=== PATIENT | male | born 1950 | race Caucasian/White ===

== ENCOUNTER → 2020-06-07 15:44 | Outpatient (CLI) | payer MEDICARE, OTHER, SELFPAY ==
--- NOTE | 2020-06-07 16:15 | RAD_ITS ---
STUDY: X-RAY - RIGHT WRIST REASON FOR EXAM: Male, 69 years old. right wrist pain after fall, pain in scaphoid region TECHNIQUE: 4 view(s) of the wrist were obtained. COMPARISON: None. FINDINGS: Normal visualized distal radius and ulna. Normal radiocarpal articulation. Normal distal radioulnar articulation. Normal carpal bones. Normal carpal articulations. Normal carpometacarpal articulation of the thumb. Normal second through fifth carpometacarpal articulations. Normal visualized metacarpal bones. The soft tissue structures are unremarkable. There is no demonstrated acute fracture. RAD/Wrist min 3 Views IMPRESSION: Normal x-ray examination of the wrist. Electronically Signed: Felix Arias MD at 17:19 EST , Service support ,
== END ==
PROVIDERS: PCP Family Medicine; Referring Provider Family Medicine; Visit Provider Family Medicine
DX: M25.531 Pain in right wrist (principal)
CPT/HCPCS: 73110

== ENCOUNTER → 2022-08-22 | Outpatient (CLI) | payer MEDICARE, OTHER, SELFPAY ==
[2022-08-22 10:23] LABS: Absolute Lymphocyte Count 2.06 X10^3/uL (0.83-4.51); Absolute Neutrophil Count 4.6 X10^3/uL (2.0-7.7); Basophil# 0.06 X10^3/uL; Basophil% 0.8 % (0-1); Eosinophil# 0.28 X10^3/uL; Eosinophils% 3.5 % (0-5); Hematocrit 44.6 % (40-54); Hemoglobin 15.1 g/dL (13.0-16.5); Lymphocyte # 2.06 X10^3/ul (0.83-4.51); Lymphocyte % 26.1 % (19-41); Mean Corp Hgb Conc 33.9 g/dL (32-36); Mean Corpuscular Hgb 30.9 pg (27.0-32.0); Mean Corpuscular Volume 91.2 fL (80-94); Mean Platelet Vol. 11.3 fl (6.2-12.0); Monocyte# 0.86 X10^3/uL; Monocyte% 10.9 % (0-10); NRBC Flagged by Analyzer 0 % (0-5); Neutrophil # 4.62 X10^3/uL (2.7-7.7); Neutrophil % 58.4 % (47-70); Platelet Count 198 K/mm3 (150-450); Red Blood Count 4.89 M/mm3 (4.6-6.2); White Blood Count 7.9 K/mm3 (4.4-11.0)
[2022-08-22 10:37] LABS: Hemoglobin A1c 5.5 % (3.8-5.6)
[2022-08-22 10:57] LABS: ALB/GLOB Ratio 1.1 RATIO (0.9-2.4); AST(SGOT) 45 U/L (15-37); Alanine Aminotransfer ALT/SGPT 55 U/L (16-61); Albumin, Serum 3.7 g/dL (3.2-5.0); Alkaline Phosphatase 72 U/L (45-117); Anion Gap 6 (5-15); BUN 12 mg/dL (7-18); BUN/Creat Ratio 12.7 RATIO (10-20); Calcium,Total 8.7 mg/dL (8.5-10.1); Chloride 106 mmol/L (98-107); Cholesterol 124 mg/dL (200); Creatinine, Serum 0.94 mg/dL (0.70-1.30); EST Glomerular Filtration Rate 84 mL/min (>60); Est Glom Filt Rate - Afr Amer 101 mL/min (>60); Globulin 3.4 g/dL (2.2-4.2); Glucose 101 mg/dL (74-106); High Density Lipoprotein 39 mg/dL; PSA,Total- Diagnostic < 0.01 ng/mL (0.0-4.0); Potassium 3.6 mmol/L (3.5-5.1); Protein, Total 7.1 g/dL (6.4-8.2); Sodium Level 137 mmol/L (136-145); Thyroid Stim Hormone (TSH) 3.22 uIU/mL (0.358-3.74); Triglycerides 126 mg/dL; Very Low Density Lipoprotein 25 mg/dL (5-40)
== END | disposition home or self-care (01) ==
PROVIDERS: PCP Family Medicine; Referring Provider Family Medicine; Visit Provider Family Medicine
DX: C61 Malignant neoplasm of prostate (principal); I77.89 Other specified disorders of arteries and arterioles; E78.5 Hyperlipidemia, unspecified; R73.9 Hyperglycemia, unspecified
CPT/HCPCS: 36415; 80053; 80061; 83036; 84153; 84443; 85025

== ENCOUNTER → 2023-02-13 | Outpatient (CLI) | payer MEDICARE, OTHER, SELFPAY ==
--- NOTE | 2023-02-13 19:00 | CT_ITS ---
INDICATION: LT GROIN PAIN EXAMINATION: CT PELVIS BONE - CT Pelvis W/O Contrast Injection TECHNIQUE: Routine noncontrast bone CT protocol was performed of the pelvis. 2-D reformats were performed by the technologist. A radiation dose optimization technique was used for this scan. IV Contrast dosage and agent: None. RADIATION DOSAGE (If Supplied By Facility): CTDIvol = ( 28.21 ) mGy, DLP = ( 1053.30 ) mGycm COMPARISON: No relevant prior comparison study available FINDINGS: SOFT TISSUES: No soft tissue swelling or gas. No unexpected radiopaque foreign body. There is a penile pump with tubing extending through the left inguinal region. [place] is in the left anterior pelvis. No inflammation surrounding the tubing. Nonobstructive bowel gas pattern. Normal appendix. No acute bladder abnormality. No lymphadenopathy. BONES/JOINTS: No acute fracture or subluxation. Normal alignment. Mild degenerative change of both hips. No sclerotic or destructive changes. CT/Pelvis without IV Contrast IMPRESSION: No acute abnormality. Tubing from penile pump in the left groin region. No inflammation. No abdominal wall hernia. Electronically Signed: Montez Lux MD at 23:30 EDT ,
== END | disposition home or self-care (01) ==
LOC: CT 19:02
PROVIDERS: PCP Family Medicine; Visit Provider Physician Assistant
DX: R10.2 Pelvic and perineal pain (principal)
CPT/HCPCS: 72192

== ENCOUNTER 2023-08-30 06:43 | Day surgery (SDC) | payer MEDICARE, OTHER, SELFPAY ==
[2023-08-30 07:01] VITALS: BP 118/95; PULSE 58; RESP 18; TEMP 36.3; O2SAT 97; BMI 29.0
[2023-08-30] MEDS: Lactated Ringers 1,000 ML 15 ML IV (07:15)
--- NOTE | 2023-08-30 07:52 | PCM.HP.STD ---
[facility] - General General Date of Admission: 01/19/20 Date of Service: 08/30/23 Chief Complaint: Screening for intestinal cancer [facility] Narrative OWEN HOOK, is a 73 M who presents for screening colonoscopy. Previous colonoscopy December 2013. He suggest that the provider at that time suggested that he had some 10-year polyps. I am suspecting that meant hyperplastic. He has had no symptoms. No bright red blood per rectum or melena. No abdominal pain. He does present via open access today. [facility] Medical History Alcohol use Bladder disease Cancer Cardiology follow-up encounter High cholesterol History of echocardiogram History of stress test HTN (hypertension) Hx of colonic polyp Injury of head and neck Non-smoker Prostate cancer Wears glasses Home Medications atorvastatin 40 mg tablet 40 mg PO DAILY 02/07/23 [History Last Taken Unknown] chlorthalidone 25 mg tablet 12.5 mg PO DAILY 02/07/23 [History Last Taken Unknown] ascorbic acid (vitamin C) 1,000 mg tablet 1 g PO DAILY 06/19/23 [History Last Taken Unknown] calcium carbonate 500 mg PO DAILY 06/19/23 [History Last Taken Unknown] cholecalciferol (vitamin D3) 50 mcg (2,000 unit) capsule 50 mcg PO DAILY 06/19/23 [History Last Taken Unknown] multivitamin 1 tab PO DAILY 06/19/23 [History Last Taken Unknown] Allergy/AdvReac Type Severity Reaction Status Date / Time ciprofloxacin [From Cipro] Allergy Retinal Verified 08/30/23 06:59 Focal Separation Family History (Updated 06/19/23 @ 09:43 by Amena Elam) Mother Hypertension CVA (cerebral vascular accident) Father Pancreatic cancer Surgical History History of bladder surgery Hx of inguinal hernia surgery S/P prostatectomy S/P tonsillectomy Social History (Updated 06/19/23 @ 09:43 by Amena Elam) household members: spouse current occupational status: retired current occupation: Physician Smoking Status: Never smoker alcohol intake: current substance use type: does not use ROS Constitutional Constitutional: Reports systems reviewed and no addt'l complaints, except as documented Cardiovascular Cardiovascular: Denies chest pain Respiratory/Chest Respiratory/Chest: Denies shortness of breath at rest Gastrointestinal Gastrointestinal: Denies abdominal pain, change in bowel habits, hematochezia or melena Vital Signs Vital Signs Vital Signs: 08/30/23 07:01 08/30/23 07:01 Temperature 97.3 F L Temperature Source Temporal Pulse Rate 58 L Respiratory Rate 18 Respiratory Pattern Normal Blood Pressure 118/95 H Blood Pressure Mean 102 Blood Pressure Source Monitor Blood Pressure Position Semi-Fowlers Blood Pressure Location Left Arm Pulse Ox 97 Oxygen Delivery Method Room Air Weight Weight: 214 lb 4.629 oz Body Mass Index (BMI) 29.0 Physical Exam Const alert, oriented x3 and no apparent distress General Appearance: cooperative and comfortable Eyes General Eye: normal appearance of both eyes Neck General: normal visual inspection Chest inspection of chest normal Resp Effort and Inspection: able to speak in complete sentences and symmetric chest movement Auscultation: clear to auscultation bilaterally Cardio regular rate and regular rhythm GI soft to palpation, non-tender and non-distended Extremity no calf tenderness Neuro oriented x3 Psych thought process normal Assessment & Plan Assessment/Plan (1) Encounter for screening for malignant neoplasm of colon: PLAN: The patient presents today for screening colonoscopy with possible biopsy or polypectomy as indicated. He is aware of the technique, benefit, risk, alternatives. He has had an opportunity to ask and have questions answered. We will proceed as noted. As noted he presents via open access Abel Doshi M.D., F.A.C.S.
--- NOTE | 2023-08-30 08:00 | COLBX_PTH ---
PATIENT: OWEN HOOK LOC: EN U#:[id number] AGE/SX: 73/M ROOM: RE08/30/[address]: Dr. Abel Doshi MD : 1950 BED: DIS: 08/30/2023 SPEC #: [id number] RECD: 08/30/23 11:10 STATUS: CALDERON LAKISHA #: [id number] KARY: 08/30/23 08:[address]: Abel Doshi DEPT: SURGICAL PATHOLOGY RECD BY: Rajwinder Diego ENTERED: 08/30/23 12:00 SP TYPE: COLON BX OTHR DR: Dr. Chano Colón MD Tissues: A - COLON BIOPSY B - Rectum, NOS C - Rectum, NOS D - Rectum, NOS Procedures: Surgery Specimen Level IV HEADER OPERATION: Colonoscopy with biopsy PRE-OP DIAGNOSIS: Encounter for screening for malignant neoplasm of colon TISSUE SUBMITTED: A- Hepatic flexure biopsy, B- Rectal sigmoid biopsy x3, C- Proximal rectum biopsy, D- Mid rectum biopsy x3 MICROSCOPIC DIAGNOSIS A. Colon at hepatic flexure, biopsy: No pathologic change. B. Rectal sigmoid colon, biopsy: Fragments of hyperplastic polyp. C. Proximal rectum, biopsy: No pathologic change. D. Mid rectum, biopsy: Fragments of hyperplastic polyp. MERY/ 09/03/2023 MICROSCOPIC DESCRIPTION Slides are reviewed. GROSS DESCRIPTION A. Received in fixative is one container labeled with the patient's name and designated Hepatic flexure biopsy. The specimen consists of multiple irregular fragments of light [place] soft tissue that in aggregate measure 0.8 x 0.8 x 0.1 cm. The specimen is totally submitted in one cassette. B. Received in fixative is one container labeled with the patient's name and designated Rectal sigmoid biopsy x3. The specimen consists of multiple irregular fragments of light [place] soft tissue that in aggregate measure 1.0 x 0.8 x 0.1 cm. The specimen is totally submitted in one cassette. C. Received in fixative is one container labeled with the patient's name and designated Proximal rectum biopsy. The specimen consists of one irregular fragment of light [place] soft tissue that measures 0.5 x 0.3 x 0.1 cm. The specimen is totally submitted in one cassette. D. Received in fixative is one container labeled with the patient's name and designated Mid rectum biopsy x3. The specimen consists of multiple irregular fragments of light [place] soft tissue that in aggregate measure 2.0 x 0.5 x 0.1 cm. The specimen is totally submitted in one cassette. MARY/ 08/30/2023 TC:5 CPT:74209p8
[2023-08-30 09:06] VITALS: BP 104/84; BP 118/95; PULSE 56; RESP 16; TEMP 36.2; O2SAT 100
[2023-08-30 09:10] VITALS: BP 104/81; BP 118/95; PULSE 61; RESP 18; O2SAT 100
--- NOTE | 2023-08-30 09:12 | OP.COLON_ITS ---
Patient Name: Danilo Bond Procedure Date: 08/30/2023 8:26 AM Date of : 1950 Age: 73 Procedure: Colonoscopy Indications: Screening for colorectal malignant neoplasm Providers: Abel Doshi MD Medicines: See the Anesthesia note for documentation of the administered medications Patient Profile: Last Colonoscopy: 2013. Complications: No immediate complications. Procedure: Pre-Anesthesia Assessment: - Prior to the procedure, a History and Physical was performed, and patient medications and allergies were reviewed. The patient's tolerance of previous anesthesia was also reviewed. The risks and benefits of the procedure and the sedation options and risks were discussed with the patient. All questions were answered, and informed consent was obtained. Prior Anticoagulants: The patient has taken no anticoagulant or antiplatelet agents. ASA Grade Assessment: II - A patient with mild systemic disease. After reviewing the risks and benefits, the patient was deemed in satisfactory condition to undergo the procedure. After I obtained informed consent, the scope was passed under direct vision. Throughout the procedure, the patient's blood pressure, pulse, and oxygen saturations were monitored continuously. The adult colonoscope was introduced through the anus and advanced to the cecum, identified by appendiceal orifice and ileocecal valve. The colonoscopy was performed without difficulty. The patient tolerated the procedure well. The quality of the bowel preparation was good. The ileocecal valve and the appendiceal orifice were photographed. Scope In: 8:35:37 AM Scope Withdrawal Time 0 hours 19 minutes 37 seconds Scope Out: 9:01:46 AM Total Procedure Duration Time 0 hours 26 minutes 9 seconds Findings: Hemorrhoids were found on perianal exam. A 3 mm polyp was found in the hepatic flexure. The polyp was sessile. The polyp was removed with a cold biopsy forceps. Resection and retrieval were complete. Three sessile polyps were found in the recto-sigmoid colon. The polyps were 3 to 4 mm in size. These polyps were removed with a cold biopsy forceps. Resection and retrieval were complete. A 4 mm polyp was found in the proximal rectum. The polyp was sessile. The polyp was removed with a cold biopsy forceps. Resection and retrieval were complete. Three sessile polyps were found in the mid rectum. The polyps were 3 to 4 mm in size. These polyps were removed with a cold biopsy forceps. Resection and retrieval were complete. Impression: - Hemorrhoids found on perianal exam. - One 3 mm polyp at the hepatic flexure, removed with a cold biopsy forceps. Resected and retrieved. - Three 3 to 4 mm polyps at the recto-sigmoid colon, removed with a cold biopsy forceps. Resected and retrieved. - One 4 mm polyp in the proximal rectum, removed with a cold biopsy forceps. Resected and retrieved. - Three 3 to 4 mm polyps in the mid rectum, removed with a cold biopsy forceps. Resected and retrieved. Recommendation: - Repeat colonoscopy in 5 years for surveillance based on pathology results. - Telephone my office for pathology results in 1 week. - Continue present medications. Procedure Code(s): --- Professional --- 89477, Colonoscopy, flexible; with biopsy, single or multiple Diagnosis Code(s): --- Professional --- Z12.11, Encounter for screening for malignant neoplasm of colon K64.9, Unspecified hemorrhoids D12.3, Benign neoplasm of transverse colon (hepatic flexure or splenic flexure) D12.8, Benign neoplasm of rectum D12.7, Benign neoplasm of rectosigmoid junction CPT copyright 2021 [employer]. All rights reserved. The codes documented in this report are preliminary and upon expeditionary fighting vehicle crewman review may be revised to meet current compliance requirements. Abel Doshi MD 08/30/2023 9:12:21 AM This report has been signed electronically. Number of Addenda: 0 Note Initiated On: 08/30/2023 8:26 AM
--- NOTE | 2023-08-30 09:13 | OP.CCLET_ITS ---
08/30/2023 Chano Colón Re : Colonoscopy procedure for Danilo Bond Danicar Eldon This procedure was performed on Wednesday, August 30, 2023. My impressions and recommendations are as follows: Impressions : - Hemorrhoids found on perianal exam. - One 3 mm polyp at the hepatic flexure, removed with a cold biopsy forceps. Resected and retrieved. - Three 3 to 4 mm polyps at the recto-sigmoid colon, removed with a cold biopsy forceps. Resected and retrieved. - One 4 mm polyp in the proximal rectum, removed with a cold biopsy forceps. Resected and retrieved. - Three 3 to 4 mm polyps in the mid rectum, removed with a cold biopsy forceps. Resected and retrieved. Recommendations : - Repeat colonoscopy in 5 years for surveillance based on pathology results. - Telephone my office for pathology results in 1 week. - Continue present medications. My findings are described in the full procedure note, which is enclosed. If I can be of further assistance, please feel free to contact me at Doctor phone number(s): Work: . Sincerely, Abel Doshi MD 08/30/2023 9:12:21 AM This report has been signed electronically.
[2023-08-30 09:15] VITALS: BP 113/74; BP 118/95; PULSE 54; RESP 16; O2SAT 100
[2023-08-30 09:21] VITALS: BP 102/64; BP 118/95; PULSE 52; RESP 18; TEMP 36.5; O2SAT 97
[2023-08-30 09:33] VITALS: BP 118/95
== END 2023-08-30 09:58 | disposition home or self-care (01) ==
LOC: EN 06:43 → AC 06:45
PROVIDERS: PCP Family Medicine; Referring Provider Family Medicine; Visit Provider Surgery
PROC: 0DJD8ZZ Inspection of Lower Intestinal Tract, Via Natural or Artificial Opening Endoscopic (ICD-10-PCS; CPT 45378; principal; 2023-08-30 07:55)
DX: Z12.11 Encounter for screening for malignant neoplasm of colon (principal); K63.5 Polyp of colon; E78.00 Pure hypercholesterolemia, unspecified; I10 Essential (primary) hypertension; K64.9 Unspecified hemorrhoids; K62.1 Rectal polyp; Z79.899 Other long term (current) drug therapy; Z80.0 Family history of malignant neoplasm of digestive organs
CPT/HCPCS: 45380; 88305; J7120; J2405

== ENCOUNTER → 2024-08-01 | Outpatient (CLI) | payer MEDICARE, OTHER, SELFPAY ==
[2024-08-01 09:04] LABS: Absolute Lymphocyte Count 2.02 X10^3/uL (0.83-4.51); Absolute Neutrophil Count 2.9 X10^3/uL (2.0-7.7); Basophil# 0.06 X10^3/uL; Eosinophil# 0.17 X10^3/uL; Eosinophils% 2.9 % (0-5); Hematocrit 43.5 % (40-54); Hemoglobin 14.7 g/dL (13.0-16.5); Lymphocyte # 2.02 X10^3/ul (0.83-4.51); Mean Corp Hgb Conc 33.8 g/dL (32-36); Mean Corpuscular Hgb 31.1 pg (27.0-32.0); Mean Corpuscular Volume 92.2 fL (80-94); Mean Platelet Vol. 11.3 fl (6.2-12.0); Monocyte# 0.66 X10^3/uL; Monocyte% 11.4 % (0-10); NRBC Flagged by Analyzer 0 % (0-5); Neutrophil # 2.85 X10^3/uL (2.7-7.7); Neutrophil % 49.5 % (47-70); Platelet Count 210 K/mm3 (150-450); RBC Distribution Width CV 12.1 % (11.6-14.6); RBC Distribution Width SD 41.5 fl (35.1-43.9); Red Blood Count 4.72 M/mm3 (4.6-6.2); White Blood Count 5.8 K/mm3 (4.4-11.0)
[2024-08-01 10:02] LABS: Hemoglobin A1c 5.5 % (<=5.6)
[2024-08-01 10:19] LABS: ALB/GLOB Ratio 1.6 RATIO (0.9-2.4); AST(SGOT) 34 U/L (<=37); Alanine Aminotransfer ALT/SGPT 30 U/L (<=46); Albumin, Serum 4.2 g/dL (3.4-4.8); Alkaline Phosphatase 73 U/L (40-129); Anion Gap 11 (5-15); BUN 15 mg/dL (4-19); BUN/Creat Ratio 17.7 RATIO (10-20); Calcium,Total 8.9 mg/dL (7.6-11.0); Carbon Dioxide 22.8 mmol/L (21.0-32.0); Chloride 107 mmol/L (98-108); Cholesterol 112 mg/dL (<=200); Creatinine, Serum 0.87 mg/dL (0.70-1.20); EST Glomerular Filtration Rate 92 (>60); Globulin 2.7 g/dL (2.2-4.2); Glucose 108 mg/dL (70-99); High Density Lipoprotein 38 mg/dL; Low Density Lipoprotein Calc. 58 mg/dL; Protein, Total 6.9 g/dL (5.9-8.4); Sodium Level 140 mmol/L (133-145); Total Bilirubin 0.53 mg/dL (0.00-1.30); Triglycerides 82 mg/dL; Very Low Density Lipoprotein 16 mg/dL (5-40); cholesterol:hdl ratio screen 2.97
[2024-08-01 10:54] LABS: PSA,Total- Diagnostic < 0.02 ng/mL (0.00-4.00); Vitamin D,25 Hydroxy 33.6 ng/mL (30-100)
== END | disposition home or self-care (01) ==
PROVIDERS: PCP Family Medicine; Referring Provider Family Medicine; Visit Provider Family Medicine
DX: C61 Malignant neoplasm of prostate (principal); R73.9 Hyperglycemia, unspecified; E78.5 Hyperlipidemia, unspecified; E55.9 Vitamin D deficiency, unspecified
CPT/HCPCS: 36415; 80053; 80061; 82306; 83036; 84153; 84439; 84443; 85025